=== PATIENT | male | born 1950 | race African-American/Black ===

== ENCOUNTER → 2019-09-19 | Outpatient (CLI) | payer OTHER ==
--- NOTE | 2019-09-19 16:49 | RADIOLOGY REPORT (SQ) ---
EXAM DESCRIPTION: U/S SCROTUM W/O DOPPLER COMPLETED DATE/TIME: 09/19/2019 3:31 pm REASON FOR STUDY: BILATERAL TESTICULAR PAIN COMPARISON: None. TECHNIQUE: Static and realtime mcdonald scale imaging of the scrotum and testes. Selected color Doppler and spectral images recorded to document blood flow. LIMITATIONS: None. FINDINGS: RIGHT: TESTICLE: Normal size, 3.6 x 2 x 2.9 cm. Slightly heterogeneous echotexture. Normal blood flow. No mass. EPIDIDYMIS: 1.1 cm. There is a 5 mm epididymal cyst. HYDROCELE OR VARICOCELE: Small hydrocele. HERNIA OR EXTRA-TESTICULAR MASS: No. OTHER: No other significant finding. LEFT: TESTICLE: Normal size, 3.8 x 1.8 x 2.4 cm. Slightly heterogeneous echotexture. Normal blood flow. No mass. EPIDIDYMIS: Normal, 6 mm. HYDROCELE OR VARICOCELE: There is a small hydrocele. HERNIA OR EXTRA-TESTICULAR MASS: No. OTHER: No other significant finding. IMPRESSION: There is a small epididymal cyst on the right. Small hydroceles bilaterally. No testic ular mass. No torsion. TECHNICAL DOCUMENTATION: JOB ID: [id number] 2010 [employer]- All Rights Reserved Reading location - IP/workstation name: [email or web address]
== END ==
LOC: RAD 14:36
PROVIDERS: ATTEND Nurse Practitioner Family
DX: N50.3 Cyst of epididymis (principal); N50.812 Left testicular pain; N43.3 Hydrocele, unspecified; N50.811 Right testicular pain
CPT/HCPCS: 76870

== ENCOUNTER 2019-12-20 13:21 | Inpatient (IN) | payer OTHER, MEDICARE ==
[2019-12-20 14:27] LABS: ALBUMIN 2.6 g/dL (3.5-5.0); ALKALINE PHOSPHATASE 45 U/L (38-126); ANION GAP 6 (5-19); ASPARTATE AMINO TRANSFERASE 15 U/L (17-59); BILIRUBIN,TOTAL 0.3 mg/dL (0.2-1.3); BLOOD UREA NITROGEN 12 mg/dL (7-20); CARBON DIOXIDE 20 mmol/L (22-30); CHLORIDE 111 mmol/L (98-107); CREATINE KINASE 22 U/L (55-170); GLUCOSE 104 mg/dL (75-110); POTASSIUM 3.9 mmol/L (3.6-5.0); TOTAL PROTEIN 5.1 g/dL (6.3-8.2)
[2019-12-20] MEDS ORDERED: NORMAL SALINE 1000 ML 1,000 ML IV ONE (14:34)
[2019-12-20 14:44] LABS: CREATINE KINASE MB < 0.22 ng/mL (<4.55); TROPONIN I < 0.012 ng/mL
[2019-12-20 14:45] LABS: ABSOLUTE BASOPHILS # (AUTO) 0.1 10^3/uL (0.0-0.2); ABSOLUTE EOSINOPHILS # (AUTO) 0.1 10^3/uL (0.0-0.6); ABSOLUTE LYMPHOCYTES (AUTO) 0.9 10^3/uL (0.5-4.7); ABSOLUTE MONOCYTES (AUTO) 0.5 10^3/uL (0.1-1.4); ABSOLUTE NEUT (AUTO) 4.6 10^3/uL (1.7-8.2); EOSINOPHILS % (AUTO) 1.2 % (0-6); MEAN CORPUSCULAR HEMOGLOBIN 23.5 pg (27.0-33.4); MEAN CORPUSCULAR HGB CONC 30.1 g/dL (32.0-36.0); MEAN CORPUSCULAR VOLUME 78 fl (80-97); MONOCYTES % (AUTO) 8.7 % (3-13); PLATELET COUNT 243 10^3/uL (150-450); RED BLOOD COUNT 1.41 10^6/uL (4.35-5.55); RED CELL DISTRIBUTION WIDTH 20.8 % (11.5-14.0); SEGMENTED NEUTROPHILS % (AUTO) 74.1 % (42-78); TOTAL CELLS COUNTED % (AUTO) 100 %; WHITE BLOOD COUNT 6.2 10^3/uL (4.0-10.5)
[2019-12-20 14:52] LABS: ADD MANUAL MICROSCOPIC YES; APPEARANCE,URINE CLEAR; BILIRUBIN,URINE NEGATIVE (NEGATIVE); COLOR,URINE YELLOW; GLUCOSE, URINE NEGATIVE (NEGATIVE); KETONES,URINE NEGATIVE (NEGATIVE); LEUKOCYTE ESTERASE,URINE NEGATIVE (NEGATIVE); NITRITE,URINE NEGATIVE (NEGATIVE); PROTEIN,URINE NEGATIVE (NEGATIVE); URINE SPECIFIC GRAVITY 1.014; UROBILINOGEN,URINE NEGATIVE mg/dL (<2.0)
[2019-12-20 14:53] LABS: RBC,URINE NONE SEEN /HPF; WBC,URINE NONE SEEN /HPF
[2019-12-20 15:03] LABS: HEMOGLOBIN 3.3 g/dL (13.5-17.0)
--- NOTE | 2019-12-20 15:11 | RADIOLOGY REPORT (SQ) ---
EXAM DESCRIPTION: CT HEAD WITHOUT IMAGES COMPLETED DATE/TIME: 12/20/2019 3:02 pm REASON FOR STUDY: dizziness COMPARISON: None. TECHNIQUE: Axial images acquired through the brain without intravenous contrast. Images reviewed wi th bone, brain and subdural windows. Additional sagittal and coronal reconstructions were generated. Images stored on PACS. All CT scanners at this facility use dose modulation, iterative reconstruction, and/or weight based d osing when appropriate to reduce radiation dose to as low as reasonably achievable (ALARA). [facility]: Dose Right [facility]: CareDose [facility]: Dose Right [facility]: Teradose 4D [facility]: [employer] RADIATION DOSE: CT Rad equipment meets quality standard of care and radiation dose reduction techniq ues were employed. CTDIvol: 53.2 mGy. DLP: 1044 mGy-cm. mGy. LIMITATIONS: None. FINDINGS: VENTRICLES: Normal size and contour. CEREBRUM: No masses. No hemorrhage. No midline shift. No evidence for acute infarction. Normal gra y/white matter differentiation. No areas of low density in the white matter. CEREBELLUM: No masses. No hemorrhage. No alteration of density. No evidence for acute infarction. EXTRAAXIAL SPACES: No fluid collections. No masses. ORBITS AND GLOBE: No intra- or extraconal masses. Normal contour of globe without masses. CALVARIUM: No fracture. PARANASAL SINUSES: No fluid or mucosal thickening. SOFT TISSUES: No mass or hematoma. OTHER: No other significant finding. IMPRESSION: NORMAL BRAIN CT WITHOUT CONTRAST. EVIDENCE OF ACUTE STROKE: NO. COMMENT: Quality ID # [id number]: Final reports with documentation of one or more dose reduction techniques (e.g., Automated exposure control, adjustment of the mA and/or kV according to patient size, use of iterative reconstruction technique) TECHNICAL DOCUMENTATION: JOB ID: [id number] 2010 [employer]- All Rights Reserved Reading location - IP/workstation name: [email or web address]
[2019-12-20 15:17] LABS: ANISOCYTOSIS 2+; BURR CELLS SLIGHT; HYPOCHROMASIA 2+; OVALOCYTES SLIGHT; PLATELET COMMENT ADEQUATE; POIKILOCYTOSIS SLIGHT; POLYCHROMASIA SLIGHT; TEAR DROP CELLS SLIGHT
[2019-12-20 15:27] LABS: INTERNATIONAL RATION (INR) 1.39; PROTHROMBIN TIME 17.2 SEC (11.4-15.4)
[2019-12-20 15:28] LABS: PARTIAL THROMBOPLASTIN TIME 21.5 SEC (23.5-35.8)
[2019-12-20] MEDS ORDERED: NORMAL SALINE 250 ML IV PRN ×2 (16:24)
--- NOTE | 2019-12-20 16:59 | RADIOLOGY REPORT (SQ) ---
EXAM DESCRIPTION: CT ABD/PELVIS WITH IV ONLY IMAGES COMPLETED DATE/TIME: 12/20/2019 4:40 pm REASON FOR STUDY: gi bleed COMPARISON: 07/26/2014 TECHNIQUE: CT scan of the abdomen and pelvis performed using helical scanning technique with dynamic intravenous contrast injection. No oral contrast. Images reviewed with lung, soft tissue, and bone windows. Reconstructed coronal and sagittal MPR images reviewed. Delayed images for evaluation of the urinary system also acquired. All images stored on PACS. All CT scanners at this facility use dose modulation, iterative reconstruction, and/or weight based d osing when appropriate to reduce radiation dose to as low as reasonably achievable (ALARA). [facility]: Dose Right [facility]: CareDose [facility]: Dose Right [facility]: Teradose 4D [facility]: [employer] CONTRAST TYPE AND DOSE: contrast/concentration: Isovue 350.00 mg/ml; Total Contrast Delivered: 94.0 ml; Total Saline Delivered: 70.6 ml RENAL FUNCTION: BUN 12, creatinine 1.04 RADIATION DOSE: CT Rad equipment meets quality standard of care and radiation dose reduction techniq ues were employed. CTDIvol: 5.9 - 8.1 mGy. DLP: 753 mGy-cm.. LIMITATIONS: None. FINDINGS: LOWER CHEST: There are small pleural effusions and bibasilar atelectasis. LIVER: Small stable hepatic cyst. There is dilatation of the common bile duct. Distal stricture and /or possibly calcified mass cannot be excluded. SPLEEN: Normal size. No focal lesions. PANCREAS: Mild inflammatory changes surrounding the pancreatic head this is most likely secondary to inflammation in the adjacent duodenum. There is contrast or calcification in the uncinate process an d distal pancreatic head. This is new from prior exam. The pancreatic duct is dilated this is incre ased since prior study. GALLBLADDER: No identified stones by CT criteria. No inflammatory changes to suggest cholecystitis. ADRENAL GLANDS: No significant masses or asymmetry. RIGHT KIDNEY AND URETER: No solid masses. No significant calcifications. No hydronephrosis or hyd roureter. LEFT KIDNEY AND URETER: No solid masses. No significant calcifications. No hydronephrosis or hydr oureter. AORTA AND VESSELS: No aneurysm. No dissection. Renal arteries, SMA, celiac without stenosis. RETROPERITONEUM: No retroperitoneal adenopathy, hemorrhage or masses. BOWEL AND PERITONEAL CAVITY: Inflammatory changes surrounding the duodenum C-loop. This may represen t do a denied he was. Upper endoscopy may be warranted. Clinical correlation is needed. There is s light thickening of the duodenum wall. APPENDIX: Normal. PELVIS: No mass. No free fluid. Normal bladder. ABDOMINAL WALL: No masses. No hernias. BONES: No significant or acute findings. OTHER: No other significant finding. IMPRESSION: 1. Inflammatory changes involving the duodenum C-loop with bowel wall thickening and trevor rounding inflammation. Inflammation around the pancreatic head is most likely secondary to the infla mmatory changes involving the duodenum. Findings are consistent with duodenitis. 2. Calcification involving uncinate process in the inferior pancreatic head. There is dilatation of the pancreatic duct. Distal common bile duct stricture cannot be excluded. Further evaluation with MRCP or ERCP is recommended. 3. Small pleural effusions and basilar atelectasis new from prior study. TECHNICAL DOCUMENTATION: JOB ID: [id number] Quality ID # [id number]: Final reports with documentation of one or more dose reduction techniques (e.g., Au tomated exposure control, adjustment of the mA and/or kV according to patient size, use of iterative reconstruction technique) 2010 [employer])- All Rights Reserved Reading location - IP/workstation name: [email or web address]
--- NOTE | 2019-12-20 17:01 | ER Document Report ---
ED Dizziness/Weakness - General Chief Complaint: Dizziness Stated Complaint: DIZZINESS Time Seen by Provider: 12/20/19 13:50 Mode of Arrival: Medic Information source: Patient Notes: 69-year-old man presents to the emergency department with complaint of dizziness with falls since worse over the past 2 to 3 days. States he is not sure why he is feeling so weak. States his symptoms began late October and has been progressive since that time. He states that he is out of breath whenever he tri es to walk to the bathroom and has fallen on 3-4 separate occasions. Patient states that he has been noticing dark stools also. He has been taking aspirin, he is a smoker, no prior history of GI bleeding. TRAVEL OUTSIDE OF THE [place] IN LAST 30 DAYS: No - Related Data Allergies/Adverse Reactions: No Known Allergies Allergy (Verified 12/20/19 14:02) Past Medical History - Social History Smoking Status: Current Every Day Smoker Frequency of alcohol use: Heavy Family History: Reviewed & Not Pertinent Patient has homicidal ideation: No - Past Medical History Cardiac Medical History: Reports: Hx Hypertension Review of Systems - Review of Systems Notes: Constitutional: Negative for fever. HENT: Negative for sore throat. Eyes: Negative for visual changes. Cardiovascular: Negative for chest pain. Respiratory: Negative for shortness of breath. Gastrointestinal: Negative for abdominal pain, vomiting or diarrhea. Genitourinary: Negative for dysuria. Musculoskeletal: Negative for back pain. Skin: Negative for rash. Neurological: + Dizziness, + generalized weakness. 10 point ROS negative except as marked above and in HPI. Physical Exam - Vital signs Vitals: Resp Pulse Ox 33 H 93 12/20/19 13:23 12/20/19 13:23 - Notes Notes: PHYSICAL EXAMINATION: Physical Exam: General: Well-nourished well-developed 69-year-old man in no acute distress HEENT: NC/AT, pupils equal round and reactive to light, MM moist,nares clear, oropharynx clear, airway patent conjunctiva pale Neck: supple, no adenopathy, no masses. Good range of motion Lungs: clear, no wheezing, no rales no rhonchi CVS: Regular rate and rhythm no murmur gallop or rub Abdomen: Soft, active, nontender, no masses, no hepatosplenomegaly rectal exam dark reddish blood, heme positive. Ext: No edema, clubbing or cyanosis. Neuro: Alert and responsive, moving all 4 extremities on command, cranial nerves intact, no focal findings Skin: Intact no open lesions, no rash PSYCH: Normal mood, normal affect. Course - Re-evaluation Re-evalutation: 12/20/19 17:05 Patient with dizziness and weakness found to have a GI bleed, significant anemia hemoglobin 3/hematocrit 11. Patient is given Protonix 80 mg with a Protonix drip and, CT scan abdomen and pelvis reveals inflammatory changes are surrounding the pancreatic head which is likely due to inflammatory changes in the duodenum. These findings may also suggest a duodenal bleed. I have discussed the patient with the hospitalist,Dr Diego, he will admit the patient to the IMCU for further management. I will contact the mobile patrol officer logistics loss prevention manager regarding the patient's being admitted. - Vital Signs Vital signs: Temp Pulse Resp BP Pulse Ox 97.9 F 98 20 114/58 L 97 12/20/19 17:55 12/20/19 17:55 12/20/19 18:01 12/20/19 18:00 12/20/19 18:01 - Laboratory Result Diagrams: 12/20/19 14:34 12/20/19 13:54 Laboratory results interpreted by me: 12/20/19 12/20/19 12/20/19 13:54 13:54 14:34 RBC 1.41 L Hgb 3.3 L* Hct 11.0 L* MCV 78 L MCH 23.5 L MCHC 30.1 L RDW 20.8 H PT 17.2 H APTT 21.5 L Sodium 136.9 L Chloride 111 H Carbon Dioxide 20 L Calcium 8.0 L AST 15 L Creatine Kinase 22 L Total Protein 5.1 L Albumin 2.6 L Crossmatch 12/20/19 15:11 RBC Hgb Hct MCV MCH MCHC RDW PT APTT Sodium Chloride Carbon Dioxide Calcium AST Creatine Kinase Total Protein Albumin Crossmatch See Detail - Diagnostic Test Radiology reviewed: Image reviewed, Reports reviewed - CT head: No acute intracranial process CT abdomen and pelvis with IV contrast: Inflammatory changes involving the duodenal CT scan abdomen and pelvis with IV contrast. C-loop with bowel wall thickening and surrounding inflammation. Inflammation around the pancreatic head is most likely secondary to the inflammatory changes involving the duodenum. Discharge - Discharge Clinical Impression: Severe anemia, Hemorrhagic shock, Dizziness GI bleed Qualifiers: GI bleed type/associated pathology: unspecified gastrointestinal hemorrhage type Qualified Code(s): K92.2 - Gastrointestinal hemorrhage, unspecified Condition: Good Disposition: ADMITTED INPATIENT Admitting Provider: Johnathon (Hospitalist) Unit Admitted: [facility]
[2019-12-20] MEDS ORDERED: DEXTROSE 50%-WATER 25 GM/50 ML DISP.SYRIN IV PRN ×2 (17:36)
[2019-12-20] MEDS ORDERED: GLUCAGON,HUMAN RECOMB 1 MG INJ SUBCUT PRN (17:36)
[2019-12-20] MEDS ORDERED: DEXTROSE 40% GEL 15 GM TUBE PO PRN ×2 (17:36)
--- NOTE | 2019-12-20 17:53 | PDOC CONSULTATION ---
Consultation Consult Date: 12/20/19 Provider Consulted: MELISSA CABELLO Consult reason:: GI bleeding History of Present Illness Admission Date/PCP: 12/20/19 17:16 [facility] History of Present Illness: FUENTES KOWALSKI is a 69 year old male patient presented to ED with weakness and profound anemia Hgb noted to be around [address] scan showing possible source in the duodenum will need to be admitted and transfused slightly tachycardic but normotensive hemodynamically stable will need to have transfusion and stabilized will get rapid testing for Covid 19 so that we can expedite EGD to be done will need to be done in the OR start protonix drip and possible even a bolus dose of Sandostatin Past Medical History Cardiac Medical History: Reports: Hypertension Social History Smoking Status: Current Every Day Smoker Family History Parental Family History Reviewed: Yes Children Family History Reviewed: Unknown Sibling(s) Family History Reviewed.: Unknown Medication/Allergy Allergies/Adverse Reactions: No Known Allergies Allergy (Verified 12/20/19 14:02) Review of Systems Constitutional: PRESENT: weakness. ABSENT: fever(s), headache(s), night sweats Eyes: ABSENT: visual disturbances Ears: ABSENT: hearing changes Nose, Mouth, and Throat: ABSENT: mouth pain, sore throat Cardiovascular: ABSENT: edema, orthropnea, palpitations Respiratory: ABSENT: dyspnea, hemoptysis Gastrointestinal: ABSENT: diarrhea, hematemesis, hematochezia, melena Genitourinary: ABSENT: dysuria, hematuria Musculoskeletal: ABSENT: deformity, joint swelling Integumentary: ABSENT: lesions, pruritus Neurological: ABSENT: syncope, tingling, tremor(s) Endocrine: ABSENT: polydipsia, polyphagia, polyuria Hematologic/Lymphatic: ABSENT: easy bruising Physical Exam Vital Signs: Temp Pulse Resp BP Pulse Ox 97.9 F 97 17 112/53 L 97 12/20/19 17:36 12/20/19 17:36 12/20/19 17:36 12/20/19 17:36 12/20/19 17:36 Intake & Output 12/19/19 12/20/19 12/21/19 06:59 06:59 06:59 Intake Total 0 Balance 0 Weight 81.647 kg General appearance: PRESENT: mild distress, well-developed. ABSENT: well- nourished Head exam: PRESENT: atraumatic, normocephalic Eye exam: PRESENT: EOMI, PERRLA. ABSENT: nystagmus, periorbital swelling, scleral icterus Mouth exam: PRESENT: moist, neck supple Neck exam: ABSENT: meningismus, tenderness, thyromegaly Respiratory exam: PRESENT: symmetrical, tachypnea. ABSENT: unlabored Cardiovascular exam: PRESENT: RRR, +S1. ABSENT: +S2 GI/Abdominal exam: PRESENT: normal bowel sounds, organolmegaly, rigid, soft. ABSENT: Irizarry's sign, rebound Neurological exam: PRESENT: alert, awake, CN II-XII grossly intact Skin exam: PRESENT: normal color. ABSENT: mottled, pallor, urticaria, vesicles Results Laboratory Results: 12/20/19 14:34 12/20/19 13:54 12/20/19 12/20/19 12/20/19 13:54 13:54 14:04 WBC Cancelled RBC Cancelled Hgb Cancelled Hct Cancelled MCV Cancelled MCH Cancelled MCHC Cancelled RDW Cancelled Plt Count Cancelled Seg Neutrophils % Cancelled Sodium 136.9 L Potassium 3.9 Chloride 111 H Carbon Dioxide 20 L Anion Gap 6 BUN 12 Creatinine 1.04 Est GFR ( Amer) > 60 Glucose 104 Calcium 8.0 L Total Bilirubin 0.3 AST 15 L Alkaline Phosphatase 45 Total Protein 5.1 L Albumin 2.6 L Urine Color YELLOW Urine Appearance CLEAR Urine pH 6.0 Ur Specific [place] 1.014 Urine Protein NEGATIVE Urine Glucose (UA) NEGATIVE Urine Ketones NEGATIVE Urine Blood NEGATIVE Urine Nitrite NEGATIVE Ur Leukocyte Esterase NEGATIVE Blood Type Antibody Screen 12/20/19 12/20/19 14:34 15:11 WBC 6.2 RBC 1.41 L Hgb 3.3 L* Hct 11.0 L* MCV 78 L MCH 23.5 L MCHC 30.1 L RDW 20.8 H Plt Count 243 Seg Neutrophils % 74.1 Sodium Potassium Chloride Carbon Dioxide Anion Gap BUN Creatinine Est GFR ( Amer) Glucose Calcium Total Bilirubin AST Alkaline Phosphatase Total Protein Albumin Urine Color Urine Appearance Urine pH Ur Specific [place] Urine Protein Urine Glucose (UA) Urine Ketones Urine Blood Urine Nitrite Ur Leukocyte Esterase Blood Type O POSITIVE Antibody Screen NEGATIVE 12/20/19 12/20/19 13:54 13:54 Creatine Kinase 22 L CK-MB (CK-2) < 0.22 Troponin I < 0.012 Impressions: Head CT 12/20/19 14:34 IMPRESSION: NORMAL BRAIN CT WITHOUT CONTRAST. EVIDENCE OF ACUTE STROKE: NO. Abdomen/Pelvis CT 12/20/19 15:10 IMPRESSION: 1. Inflammatory changes involving the duodenum C-loop with bowel wall thickening and surrounding inflammation. Inflammation around the pancreatic head is most likely secondary to the inflammatory changes involving the duodenum. Findings are consistent with duodenitis. 2. Calcification involving uncinate process in the inferior pancreatic head. There is dilatation of the pancreatic duct. Distal common bile duct stricture cannot be excluded. Further evaluation with MRCP or ERCP is recommended. 3. Small pleural effusions and basilar atelectasis new from prior study. Assessment & Plan - Diagnosis (1) GI bleed Qualifiers: GI bleed type/associated pathology: unspecified gastrointestinal hemorrhage type Qualified Code(s): K92.2 - Gastrointestinal hemorrhage, unspecified Plan: appears to be chronic since no hemodynamic instability, but will need urgent EGD will need admission and transfusion, check PT as well to make sure no concurrent coagulopathy start on Protonic drip start on Sandostatin as well once Hgb > 7, will have EGD done Risks, benefits and alternatives are discussed with the patient in detail further recommendations to follow I spoke to ED physician to get rapid Covid 19 testing so we can expedite his procedure - Time Time Spent: 50 to 70 Minutes
--- NOTE | 2019-12-20 18:02 | PDOC H&P ---
History of Present Illness Admission Date/PCP: 12/20/19 17:16 [facility] Patient complains of: Dizziness History of Present Illness: FUENTES KOWALSKI is a 69 year old male who has history of hypertension, arthritis and prostate cancer status post recent radiation therapy. Patient presents to the emergency room due to acute onset of generalized weakness and dizziness started about 2 weeks ago and has been progressive in nature. Patient cannot move around without feeling dizzy and he actually has been crawling on the floor because he could not stand up. When he came to the emergency room his hemoglobin was 3.3. He also admits to mild to moderate epigastric abdominal pain as well as intermittent nausea and vomiting. patient also complains of melena. Patient takes aspirin, diclofenac. He is everyday smoker and drinker. Past Medical History Cardiac Medical History: Reports: Hypertension Social History Smoking Status: Current Every Day Smoker Family History Parental Family History Reviewed: Yes Children Family History Reviewed: Yes Sibling(s) Family History Reviewed.: Yes Medication/Allergy Allergies/Adverse Reactions: No Known Allergies Allergy (Verified 12/20/19 14:02) Review of Systems All systems: reviewed and no additional remarkable complaints except as stated Physical Exam Vital Signs: Temp Pulse Resp BP Pulse Ox 97.9 F 97 17 112/53 L 97 12/20/19 17:36 12/20/19 17:36 12/20/19 17:36 12/20/19 17:36 12/20/19 17:36 Intake & Output 12/19/19 12/20/19 12/21/19 06:59 06:59 06:59 Intake Total 0 Balance 0 Weight 180 lb General appearance: PRESENT: no acute distress, cooperative Head exam: PRESENT: atraumatic, normocephalic Eye exam: PRESENT: conjunctiva pale, EOMI, PERRLA Ear exam: ABSENT: bleeding, drainage Mouth exam: PRESENT: moist, neck supple Teeth exam: PRESENT: poor dentation Neck exam: ABSENT: meningismus, tenderness, tracheostomy Respiratory exam: PRESENT: clear to auscultation luisa, symmetrical Cardiovascular exam: PRESENT: +S1, +S2, tachycardia GI/Abdominal exam: PRESENT: normal bowel sounds, soft, tenderness Rectal exam: PRESENT: deferred Neurological exam: PRESENT: alert, awake, oriented to person, oriented to place, oriented to time, oriented to situation Psychiatric exam: PRESENT: anxious. ABSENT: suicidal ideation Skin exam: PRESENT: pallor Results Laboratory Results: 12/20/19 14:34 12/20/19 13:54 12/20/19 12/20/19 12/20/19 13:54 13:54 14:04 WBC Cancelled RBC Cancelled Hgb Cancelled Hct Cancelled MCV Cancelled MCH Cancelled MCHC Cancelled RDW Cancelled Plt Count Cancelled Seg Neutrophils % Cancelled Sodium 136.9 L Potassium 3.9 Chloride 111 H Carbon Dioxide 20 L Anion Gap 6 BUN 12 Creatinine 1.04 Est GFR ( Amer) > 60 Glucose 104 Calcium 8.0 L Total Bilirubin 0.3 AST 15 L Alkaline Phosphatase 45 Total Protein 5.1 L Albumin 2.6 L Urine Color YELLOW Urine Appearance CLEAR Urine pH 6.0 Ur Specific [place] 1.014 Urine Protein NEGATIVE Urine Glucose (UA) NEGATIVE Urine Ketones NEGATIVE Urine Blood NEGATIVE Urine Nitrite NEGATIVE Ur Leukocyte Esterase NEGATIVE Blood Type Antibody Screen 12/20/19 12/20/19 14:34 15:11 WBC 6.2 RBC 1.41 L Hgb 3.3 L* Hct 11.0 L* MCV 78 L MCH 23.5 L MCHC 30.1 L RDW 20.8 H Plt Count 243 Seg Neutrophils % 74.1 Sodium Potassium Chloride Carbon Dioxide Anion Gap BUN Creatinine Est GFR ( Amer) Glucose Calcium Total Bilirubin AST Alkaline Phosphatase Total Protein Albumin Urine Color Urine Appearance Urine pH Ur Specific [place] Urine Protein Urine Glucose (UA) Urine Ketones Urine Blood Urine Nitrite Ur Leukocyte Esterase Blood Type O POSITIVE Antibody Screen NEGATIVE 12/20/19 12/20/19 13:54 13:54 Creatine Kinase 22 L CK-MB (CK-2) < 0.22 Troponin I < 0.012 Impressions: Head CT 12/20/19 14:34 IMPRESSION: NORMAL BRAIN CT WITHOUT CONTRAST. EVIDENCE OF ACUTE STROKE: NO. Abdomen/Pelvis CT 12/20/19 15:10 IMPRESSION: 1. Inflammatory changes involving the duodenum C-loop with bowel wall thickening and surrounding inflammation. Inflammation around the pancreatic head is most likely secondary to the inflammatory changes involving the duodenum. Findings are consistent with duodenitis. 2. Calcification involving uncinate process in the inferior pancreatic head. There is dilatation of the pancreatic duct. Distal common bile duct stricture cannot be excluded. Further evaluation with MRCP or ERCP is recommended. 3. Small pleural effusions and basilar atelectasis new from prior study. Assessment and Plan - Diagnosis (1) Dizziness Is this a current diagnosis for this admission?: Yes Plan: Due to anemia and hypotension. Currently improved. (2) GI bleed Qualifiers: GI bleed type/associated pathology: unspecified gastrointestinal hemorrhage type Qualified Code(s): K92.2 - Gastrointestinal hemorrhage, unspecified Is this a current diagnosis for this admission?: Yes Plan: CT scan positive for duodenitis Start IV Protonix drip Keep him n.p.o. for possible EGD GI consulted (3) Hemorrhagic shock Is this a current diagnosis for this admission?: Yes Plan: Patient started transfusion in the ER. Blood pressures improved. (4) Severe anemia Is this a current diagnosis for this admission?: Yes Plan: Transfusion as above. Due to GI bleeding.
[2019-12-20] MEDS ORDERED: PANTOPRAZOLE SODIUM 80 MG in NORMAL SALINE 100 ML IV ONE (18:30)
[2019-12-20] MEDS: NORMAL SALINE 100 ML with PANTOPRAZOLE SODIUM 80 MG IV PRN ×2 (21:55)
[2019-12-21] MEDS: THIAMINE HCL 100 MG, FOLIC ACID 1 MG in NORMAL SALINE 250 ML IV SCH ×2 (00:08→21:12)
[2019-12-21] MEDS: RINGERS SOLUTION,LACTATED 1,000 ML IV PRN ×2 (00:08→17:42)
[2019-12-21 02:37] LABS: ABSOLUTE EOSINOPHILS # (AUTO) 0.1 10^3/uL (0.0-0.6); ABSOLUTE LYMPHOCYTES (AUTO) 0.9 10^3/uL (0.5-4.7); ABSOLUTE MONOCYTES (AUTO) 0.5 10^3/uL (0.1-1.4); ABSOLUTE NEUT (AUTO) 3.9 10^3/uL (1.7-8.2); BASOPHILS % (AUTO) 0.5 % (0-2); EOSINOPHILS % (AUTO) 1.2 % (0-6); HEMATOCRIT 17.5 % (37.9-51.0); LYMPHOCYTES % (AUTO) 16.9 % (13-45); MEAN CORPUSCULAR HEMOGLOBIN 27.3 pg (27.0-33.4); MEAN CORPUSCULAR HGB CONC 32.6 g/dL (32.0-36.0); MONOCYTES % (AUTO) 8.8 % (3-13); PLATELET COUNT 207 10^3/uL (150-450); RED BLOOD COUNT 2.09 10^6/uL (4.35-5.55); RED CELL DISTRIBUTION WIDTH 21.5 % (11.5-14.0); SEGMENTED NEUTROPHILS % (AUTO) 72.6 % (42-78); TOTAL CELLS COUNTED % (AUTO) 100 %; WHITE BLOOD COUNT 5.3 10^3/uL (4.0-10.5)
[2019-12-21 02:39] LABS: HEMOGLOBIN 5.7 g/dL (13.5-17.0)
[2019-12-21 02:40] LABS: MEAN CORPUSCULAR VOLUME 84 fl (80-97)
[2019-12-21 06:52] LABS: ANION GAP 6 (5-19); BLOOD UREA NITROGEN 11 mg/dL (7-20); CALCIUM 7.7 mg/dL (8.4-10.2); CARBON DIOXIDE 19 mmol/L (22-30); CHLORIDE 114 mmol/L (98-107); GLUCOSE 101 mg/dL (75-110); POTASSIUM 4.5 mmol/L (3.6-5.0)
[2019-12-21 06:58] LABS: HEMATOCRIT 21.1 % (37.9-51.0); MEAN CORPUSCULAR HEMOGLOBIN 27.6 pg (27.0-33.4); MEAN CORPUSCULAR VOLUME 84 fl (80-97); PLATELET COUNT 219 10^3/uL (150-450); RED BLOOD COUNT 2.51 10^6/uL (4.35-5.55); WHITE BLOOD COUNT 5.6 10^3/uL (4.0-10.5)
[2019-12-21 07:02] LABS: HEMOGLOBIN 6.9 g/dL (13.5-17.0)
[2019-12-21] MEDS: NORMAL SALINE 100 ML with PANTOPRAZOLE SODIUM 80 MG IV PRN ×4 (07:30→20:50)
--- NOTE | 2019-12-21 08:36 | EKG REPORT ---
SEVERITY:- OTHERWISE NORMAL ECG - SINUS TACHYCARDIA LOW VOLTAGE IN FRONTAL LEADS : Confirmed by: Shelley Santiago 21-Dec-2019 08:36:01
--- NOTE | 2019-12-21 10:47 | PDOC PROGRESS REPORT ---
Subjective Progress Note for:: 12/21/19 Subjective:: Patient complains of: Dizziness History of Present Illness: FUENTES KOWALSKI is a 69 year old male who has history of hypertension, arthritis and prostate cancer status post recent radiation therapy. Patient presents to the emergency room due to acute onset of generalized weakness and dizziness started about 2 weeks ago and has been progressive in nature. Patient cannot move around without feeling dizzy and he actually has been crawling on the floor because he could not stand up. When he came to the emergency room his hemoglobin was 3.3. He also admits to mild to moderate epigastric abdominal pain as well as intermittent nausea and vomiting. patient also complains of melena. Patient takes aspirin, diclofenac. He is everyday smoker and drinker. Interval history: 12/21/2019: Patient seen and examined. He is much better today. He denies dizziness, chest pain or shortness of breath. His hemoglobin improved to 6.9 after 4 units of blood. Review of Systems All systems: reviewed and no additional remarkable complaints except as stated Physical Exam General appearance: PRESENT: no acute distress, cooperative Head exam: PRESENT: atraumatic, normocephalic Eye exam: PRESENT: conjunctiva pale, EOMI, PERRLA Ear exam: ABSENT: bleeding, drainage Mouth exam: PRESENT: moist, neck supple Teeth exam: PRESENT: poor dentation Neck exam: ABSENT: meningismus, tenderness, tracheostomy Respiratory exam: PRESENT: clear to auscultation luisa, symmetrical Cardiovascular exam: PRESENT: +S1, +S2, tachycardia GI/Abdominal exam: PRESENT: normal bowel sounds, soft, tenderness Rectal exam: PRESENT: deferred Neurological exam: PRESENT: alert, awake, oriented to person, oriented to place, oriented to time, oriented to situation Psychiatric exam: PRESENT: anxious. ABSENT: suicidal ideation Skin exam: PRESENT: pallor Reason For Visit: SEVERE ANEMIA,HEMORRHAGIC SHOCK,DIZZINESS Physical Exam Vital Signs: Temp Pulse Resp BP Pulse Ox 98.9 F 80 20 129/65 H 96 12/21/19 10:05 12/21/19 10:05 12/21/19 10:05 12/21/19 10:05 12/21/19 10:05 Intake & Output 12/20/19 12/21/19 12/22/19 06:59 06:59 06:59 Intake Total 2742.2 426 Output Total 650 Balance 2092.2 426 Weight 175 lb 14.862 oz Results Laboratory Results: 12/21/19 06:04 12/21/19 06:04 12/20/19 12/20/19 12/20/19 13:54 13:54 14:04 WBC Cancelled RBC Cancelled Hgb Cancelled Hct Cancelled MCV Cancelled MCH Cancelled MCHC Cancelled RDW Cancelled Plt Count Cancelled Seg Neutrophils % Cancelled Sodium 136.9 L Potassium 3.9 Chloride 111 H Carbon Dioxide 20 L Anion Gap 6 BUN 12 Creatinine 1.04 Est GFR ( Amer) > 60 Glucose 104 Calcium 8.0 L Total Bilirubin 0.3 AST 15 L Alkaline Phosphatase 45 Total Protein 5.1 L Albumin 2.6 L Urine Color YELLOW Urine Appearance CLEAR Urine pH 6.0 Ur Specific Caret 1.014 Urine Protein NEGATIVE Urine Glucose (UA) NEGATIVE Urine Ketones NEGATIVE Urine Blood NEGATIVE Urine Nitrite NEGATIVE Ur Leukocyte Esterase NEGATIVE Blood Type Antibody Screen 12/20/19 12/20/19 12/21/19 14:34 15:11 02:09 WBC 6.2 5.3 RBC 1.41 L 2.09 L Hgb 3.3 L* 5.7 L D Hct 11.0 L* 17.5 L MCV 78 L 84 D MCH 23.5 L 27.3 MCHC 30.1 L 32.6 RDW 20.8 H 21.5 H Plt Count 243 207 Seg Neutrophils % 74.1 72.6 Sodium Potassium Chloride Carbon Dioxide Anion Gap BUN Creatinine Est GFR ( Amer) Glucose Calcium Total Bilirubin AST Alkaline Phosphatase Total Protein Albumin Urine Color Urine Appearance Urine pH Ur Specific Caret Urine Protein Urine Glucose (UA) Urine Ketones Urine Blood Urine Nitrite Ur Leukocyte Esterase Blood Type O POSITIVE Antibody Screen NEGATIVE 12/21/19 12/21/19 06:04 06:04 WBC 5.6 RBC 2.51 L Hgb 6.9 L Hct 21.1 L MCV 84 MCH 27.6 MCHC 33.0 RDW 20.0 H Plt Count 219 Seg Neutrophils % Sodium 139.1 Potassium 4.5 Chloride 114 H Carbon Dioxide 19 L Anion Gap 6 BUN 11 Creatinine 0.93 Est GFR ( Amer) > 60 Glucose 101 Calcium 7.7 L Total Bilirubin AST Alkaline Phosphatase Total Protein Albumin Urine Color Urine Appearance Urine pH Ur Specific Caret Urine Protein Urine Glucose (UA) Urine Ketones Urine Blood Urine Nitrite Ur Leukocyte Esterase Blood Type Antibody Screen 12/20/19 12/20/19 13:54 13:54 Creatine Kinase 22 L CK-MB (CK-2) < 0.22 Troponin I < 0.012 Impressions: Head CT 12/20/19 14:34 IMPRESSION: NORMAL BRAIN CT WITHOUT CONTRAST. EVIDENCE OF ACUTE STROKE: NO. Abdomen/Pelvis CT 12/20/19 15:10 IMPRESSION: 1. Inflammatory changes involving the duodenum C-loop with bowel wall thickening and surrounding inflammation. Inflammation around the pancreatic head is most likely secondary to the inflammatory changes involving the duodenum. Findings are consistent with duodenitis. 2. Calcification involving uncinate process in the inferior pancreatic head. There is dilatation of the pancreatic duct. Distal common bile duct stricture cannot be excluded. Further evaluation with MRCP or ERCP is recommended. 3. Small pleural effusions and basilar atelectasis new from prior study. Assessment and Plan - Diagnosis (1) Dizziness Is this a current diagnosis for this admission?: Yes Plan: Due to anemia and hypotension. Currently improved. (2) GI bleed Qualifiers: GI bleed type/associated pathology: unspecified gastrointestinal hemorrhage type Qualified Code(s): K92.2 - Gastrointestinal hemorrhage, unspecified Is this a current diagnosis for this admission?: Yes Plan: CT scan positive for duodenitis Continue IV Protonix drip Keep him n.p.o. for possible EGD GI consulted (3) Hemorrhagic shock Is this a current diagnosis for this admission?: Yes Plan: Patient started transfusion in the ER. Currently resolved. (4) Severe anemia Is this a current diagnosis for this admission?: Yes Plan: Received 4 units of blood so far and his hemoglobin improved to 6.9. Due to GI bleeding.
[2019-12-21] MEDS ORDERED: PROPOFOL INJ 200 MG/20 ML VIAL IV ONE (11:04)
[2019-12-21 12:54] LABS: HEMATOCRIT 25.1 % (37.9-51.0); HEMOGLOBIN 8.3 g/dL (13.5-17.0); MEAN CORPUSCULAR HEMOGLOBIN 27.5 pg (27.0-33.4); MEAN CORPUSCULAR HGB CONC 33.1 g/dL (32.0-36.0); MEAN CORPUSCULAR VOLUME 83 fl (80-97); PLATELET COUNT 225 10^3/uL (150-450); RED BLOOD COUNT 3.02 10^6/uL (4.35-5.55); RED CELL DISTRIBUTION WIDTH 19.4 % (11.5-14.0)
[2019-12-21 13:24] LABS: ANION GAP 6 (5-19); BLOOD UREA NITROGEN 10 mg/dL (7-20); CALCIUM 7.7 mg/dL (8.4-10.2); CARBON DIOXIDE 21 mmol/L (22-30); CHLORIDE 112 mmol/L (98-107); GLUCOSE 97 mg/dL (75-110); POTASSIUM 3.8 mmol/L (3.6-5.0)
--- NOTE | 2019-12-21 13:44 | Operative Report ---
Operative Report DATE OF SURGERY: 12/21/19 Operative Report: The risks benefits and alternatives of the procedure explained to the patient in detail and informed consent is obtained.A GIF Olympus video scope was inserted into the patient's mouth and hypopharynx, the esophagus is identified intubated and insufflated ,the scope was then advanced through the esophagus stomach and duodenum, retroflexion maneuver is done ,the esophagus stomach and first and second portions of the duodenum examined PREOPERATIVE DIAGNOSIS: Abnormal CT scan with possible lesion in the duodenum. GI bleeding. Anemia POSTOPERATIVE DIAGNOSIS: Duodenal ulcer but clean base not actively bleeding. Gastritis status post biopsy OPERATION: EGD with biopsy SURGEON: MELISSA CABELLO ANESTHESIA: LMAC TISSUE REMOVED OR ALTERED: As noted above. COMPLICATIONS: None. ESTIMATED BLOOD LOSS: None. INTRAOPERATIVE FINDINGS: As noted above. PROCEDURE: Patient tolerated the procedure well. No immediate postprocedure complications are noted. Patient is sent back to his room in good condition. Wait on biopsies. Remain on PPI Repeat scope as outpatient to document healing If further bleeding continues may need colonoscopy
[2019-12-21 15:19] LABS: PATH REVIEW PATHOLOGIST REVIEWED
[2019-12-22] MEDS: RINGERS SOLUTION,LACTATED 1,000 ML IV PRN ×2 (04:42→16:30)
[2019-12-22] MEDS: NORMAL SALINE 100 ML with PANTOPRAZOLE SODIUM 80 MG IV PRN ×4 (05:58→16:30)
[2019-12-22 06:49] LABS: HEMATOCRIT 22.8 % (37.9-51.0); MEAN CORPUSCULAR HEMOGLOBIN 27.4 pg (27.0-33.4); MEAN CORPUSCULAR HGB CONC 33.4 g/dL (32.0-36.0); MEAN CORPUSCULAR VOLUME 82 fl (80-97); PLATELET COUNT 211 10^3/uL (150-450); RED BLOOD COUNT 2.77 10^6/uL (4.35-5.55); RED CELL DISTRIBUTION WIDTH 19.6 % (11.5-14.0); WHITE BLOOD COUNT 6.2 10^3/uL (4.0-10.5)
[2019-12-22 06:51] LABS: HEMOGLOBIN 7.6 g/dL (13.5-17.0)
--- NOTE | 2019-12-22 10:56 | PDOC PROGRESS REPORT ---
Subjective Progress Note for:: 12/22/19 Subjective:: Patient complains of: Dizziness History of Present Illness: FUENTES KOWALSKI is a 69 year old male who has history of hypertension, arthritis and prostate cancer status post recent radiation therapy. Patient presents to the emergency room due to acute onset of generalized weakness and dizziness started about 2 weeks ago and has been progressive in nature. Patient cannot move around without feeling dizzy and he actually has been crawling on the floor because he could not stand up. When he came to the emergency room his hemoglobin was 3.3. He also admits to mild to moderate epigastric abdominal pain as well as intermittent nausea and vomiting. patient also complains of melena. Patient takes aspirin, diclofenac. He is everyday smoker and drinker. Interval history: 12/21/2019: Patient seen and examined. He is much better today. He denies dizziness, chest pain or shortness of breath. His hemoglobin improved to 6.9 after 4 units of blood. 12/22/2019: Patient was seen and examined. Status post EGD yesterday that was positive for gastritis and duodenal ulcer. He complains of abdominal pain but he is tolerating diet. Hemoglobin has been stable at 7.6. Review of Systems All systems: reviewed and no additional remarkable complaints except as stated Physical Exam General appearance: PRESENT: no acute distress, cooperative Head exam: PRESENT: atraumatic, normocephalic Eye exam: PRESENT: conjunctiva pale, EOMI, PERRLA Ear exam: ABSENT: bleeding, drainage Mouth exam: PRESENT: moist, neck supple Teeth exam: PRESENT: poor dentation Neck exam: ABSENT: meningismus, tenderness, tracheostomy Respiratory exam: PRESENT: clear to auscultation luisa, symmetrical Cardiovascular exam: PRESENT: +S1, +S2, tachycardia GI/Abdominal exam: PRESENT: normal bowel sounds, soft, tenderness Rectal exam: PRESENT: deferred Neurological exam: PRESENT: alert, awake, oriented to person, oriented to place, oriented to time, oriented to situation Psychiatric exam: PRESENT: anxious. ABSENT: suicidal ideation Skin exam: PRESENT: pallor Reason For Visit: SEVERE ANEMIA,HEMORRHAGIC SHOCK,DIZZINESS Physical Exam Vital Signs: Temp Pulse Resp BP Pulse Ox 97.5 F 78 18 127/65 H 91 L 12/22/19 08:05 12/22/19 08:05 12/22/19 08:05 12/22/19 08:05 12/22/19 08:05 Intake & Output 12/21/19 12/22/19 12/23/19 06:59 06:59 06:59 Intake Total 2742.2 3905.2 Output Total 650 653 Balance 2092.2 3252.2 Weight 175 lb 14.862 oz 183 lb 10.321 oz 183 lb 10.321 oz Results Laboratory Results: 12/22/19 06:04 12/21/19 12:46 12/21/19 12/21/19 12/22/19 12:46 12:46 06:04 WBC 6.0 6.2 RBC 3.02 L 2.77 L Hgb 8.3 L 7.6 L Hct 25.1 L 22.8 L MCV 83 82 MCH 27.5 27.4 MCHC 33.1 33.4 RDW 19.4 H 19.6 H Plt Count 225 211 Sodium 138.5 Potassium 3.8 Chloride 112 H Carbon Dioxide 21 L Anion Gap 6 BUN 10 Creatinine 0.86 Est GFR ( Amer) > 60 Glucose 97 Calcium 7.7 L 12/20/19 12/20/19 13:54 13:54 Creatine Kinase 22 L CK-MB (CK-2) < 0.22 Troponin I < 0.012 Impressions: Head CT 12/20/19 14:34 IMPRESSION: NORMAL BRAIN CT WITHOUT CONTRAST. EVIDENCE OF ACUTE STROKE: NO. Abdomen/Pelvis CT 12/20/19 15:10 IMPRESSION: 1. Inflammatory changes involving the duodenum C-loop with bowel wall thickening and surrounding inflammation. Inflammation around the pancreatic head is most likely secondary to the inflammatory changes involving the duodenum. Findings are consistent with duodenitis. 2. Calcification involving uncinate process in the inferior pancreatic head. There is dilatation of the pancreatic duct. Distal common bile duct stricture cannot be excluded. Further evaluation with MRCP or ERCP is recommended. 3. Small pleural effusions and basilar atelectasis new from prior study. Assessment and Plan - Diagnosis (1) Dizziness Is this a current diagnosis for this admission?: Yes Plan: Due to anemia and hypotension. Currently improved. (2) GI bleed Qualifiers: GI bleed type/associated pathology: unspecified gastrointestinal hemorrhage type Qualified Code(s): K92.2 - Gastrointestinal hemorrhage, unspecified Is this a current diagnosis for this admission?: Yes Plan: CT scan positive for duodenitis Continue IV Protonix drip EGD yesterday positive for gastritis and duodenal ulcer (3) Hemorrhagic shock Is this a current diagnosis for this admission?: Yes Plan: Patient started transfusion in the ER. Currently resolved. (4) Severe anemia Is this a current diagnosis for this admission?: Yes Plan: Received 4 units of blood so far and his hemoglobin improved to 7.6. Due to GI bleeding.
[2019-12-22 18:26] LABS: HEMATOCRIT 22.3 % (37.9-51.0); MEAN CORPUSCULAR HGB CONC 32.8 g/dL (32.0-36.0); MEAN CORPUSCULAR VOLUME 82 fl (80-97); RED CELL DISTRIBUTION WIDTH 20.2 % (11.5-14.0); WHITE BLOOD COUNT 7.2 10^3/uL (4.0-10.5)
[2019-12-22 18:50] LABS: PLATELET COUNT 131 10^3/uL (150-450)
[2019-12-22 18:51] LABS: HEMOGLOBIN 7.3 g/dL (13.5-17.0)
[2019-12-22] MEDS: THIAMINE HCL 100 MG, FOLIC ACID 1 MG in NORMAL SALINE 250 ML IV SCH (21:35)
[2019-12-22 23:28] LABS: HEMATOCRIT 21.1 % (37.9-51.0); MEAN CORPUSCULAR HEMOGLOBIN 27.5 pg (27.0-33.4); MEAN CORPUSCULAR HGB CONC 33.4 g/dL (32.0-36.0); MEAN CORPUSCULAR VOLUME 82 fl (80-97); PLATELET COUNT 231 10^3/uL (150-450); RED BLOOD COUNT 2.56 10^6/uL (4.35-5.55); RED CELL DISTRIBUTION WIDTH 20.1 % (11.5-14.0); WHITE BLOOD COUNT 7.5 10^3/uL (4.0-10.5)
[2019-12-22 23:51] LABS: ABSOLUTE LYMPHOCYTES# (MANUAL) 0.7 10^3/uL (0.5-4.7); ABSOLUTE MONOCYTES # (MANUAL) 0.8 10^3/uL (0.1-1.4); BAND NEUTROPHILS % (MANUAL) 1 % (3-5); BASOPHILS % (MANUAL) 0 % (0-2); EOSINOPHILS % (MANUAL) 0 % (0-6); LYMPHOCYTES % (MANUAL) 9 % (13-45); MONOCYTES % (MANUAL) 10 % (3-13); NUCLEATED RED BLOOD CELLS 5 /100 WBC (0); SEGMENTED NEUTROPHILS % (MAN) 80 % (42-78); TOTAL CELLS COUNTED 100
[2019-12-22 23:52] LABS: ANISOCYTOSIS 2+; PLATELET COMMENT ADEQUATE; POLYCHROMASIA SLIGHT
[2019-12-22 23:53] LABS: HEMOGLOBIN 7.1 g/dL (13.5-17.0)
[2019-12-23] MEDS ORDERED: PANTOPRAZOLE SODIUM 40 MG VIAL IV ONE (02:35)
[2019-12-23] MEDS: RINGERS SOLUTION,LACTATED 1,000 ML IV PRN ×2 (02:50→16:02)
[2019-12-23] MEDS: NORMAL SALINE 100 ML with PANTOPRAZOLE SODIUM 80 MG IV PRN ×4 (02:51→14:29)
--- NOTE | 2019-12-23 11:23 | PDOC PROGRESS REPORT ---
Subjective Progress Note for:: 12/23/19 Subjective:: The patient reports that he is still having "bloody" stools. Discussed with the nurse reveals that these are more melanotic than bright red blood. He is likely still clearing blood from his GI tract. His mouth is still very dry. Reason For Visit: SEVERE ANEMIA,HEMORRHAGIC SHOCK,DIZZINESS Physical Exam Vital Signs: Temp Pulse Resp BP Pulse Ox 97.8 F 79 16 130/59 H 92 12/23/19 07:47 12/23/19 07:47 12/23/19 07:47 12/23/19 07:47 12/23/19 07:47 Intake & Output 12/22/19 12/23/19 12/24/19 06:59 06:59 06:59 Intake Total 3905.2 4787.2 Output Total 653 1000 Balance 3252.2 3787.2 Weight 83.3 kg 84.9 kg General appearance: PRESENT: no acute distress Head exam: PRESENT: atraumatic, normocephalic Eye exam: PRESENT: conjunctiva pale, EOMI. ABSENT: scleral icterus Ear exam: PRESENT: normal external ear exam. ABSENT: bleeding, drainage Mouth exam: PRESENT: dry mucosa, tongue midline Respiratory exam: PRESENT: clear to auscultation luisa, symmetrical, unlabored. ABSENT: prolonged expiratory phas, rales, rhonchi, tachypnea, wheezes Cardiovascular exam: PRESENT: RRR, +S1, +S2. ABSENT: diastolic murmur, irregular rhythm, systolic murmur GI/Abdominal exam: PRESENT: normal bowel sounds, soft. ABSENT: distended, guarding, tenderness Rectal exam: PRESENT: deferred Gentrourinary exam: ABSENT: indwelling catheter Extremities exam: ABSENT: pedal edema Musculoskeletal exam: PRESENT: ambulatory, normal inspection. ABSENT: deformity Neurological exam: PRESENT: alert, awake, oriented to person, oriented to place, oriented to time, oriented to situation, CN II-XII grossly intact. ABSENT: altered Psychiatric exam: PRESENT: flat affect. ABSENT: agitated, anxious Focused psych exam: ABSENT: delusional, paranoid, restlessness Skin exam: PRESENT: dry, normal color, warm. ABSENT: rash Results Laboratory Results: 12/22/19 23:13 12/21/19 12:46 12/20/19 12/22/19 12/22/19 15:11 18:10 23:13 WBC 7.2 7.5 RBC 2.70 L 2.56 L Hgb 7.3 L 7.1 L Hct 22.3 L 21.1 L MCV 82 82 MCH 27.0 27.5 MCHC 32.8 33.4 RDW 20.2 H 20.1 H Plt Count 131 L 231 Seg Neutrophils % Not Reportable Blood Type O POSITIVE Antibody Screen NEGATIVE 12/20/19 12/20/19 13:54 13:54 Creatine Kinase 22 L CK-MB (CK-2) < 0.22 Troponin I < 0.012 Impressions: Head CT 12/20/19 14:34 IMPRESSION: NORMAL BRAIN CT WITHOUT CONTRAST. EVIDENCE OF ACUTE STROKE: NO. Abdomen/Pelvis CT 12/20/19 15:10 IMPRESSION: 1. Inflammatory changes involving the duodenum C-loop with bowel wall thickening and surrounding inflammation. Inflammation around the pancreatic head is most likely secondary to the inflammatory changes involving the duodenum. Findings are consistent with duodenitis. 2. Calcification involving uncinate process in the inferior pancreatic head. There is dilatation of the pancreatic duct. Distal common bile duct stricture cannot be excluded. Further evaluation with MRCP or ERCP is recommended. 3. Small pleural effusions and basilar atelectasis new from prior study. Assessment and Plan - Diagnosis (1) Dizziness Is this a current diagnosis for this admission?: Yes Plan: Due to anemia and hypotension. Currently improved. 12/24/2019 Due to blood loss anemia. Resolved. (2) GI bleed Qualifiers: GI bleed type/associated pathology: duodenal ulcer Qualified Code(s): K26.4 - Chronic or unspecified duodenal ulcer with hemorrhage Is this a current diagnosis for this admission?: Yes Plan: CT scan positive for duodenitis Continue IV Protonix drip EGD yesterday positive for gastritis and duodenal ulcer 12/23/2019 Duodenal ulcer identified. No active bleeding. Gastritis identified by biopsy. Negative for Helicobacter. High risk factors are nonsteroidal anti- inflammatory medications daily, alcohol daily and smoking daily. (3) Hemorrhagic shock Is this a current diagnosis for this admission?: Yes Plan: Patient started transfusion in the ER. Currently resolved. 12/23/2019 Resolved with transfusions (4) Severe anemia Is this a current diagnosis for this admission?: Yes Plan: Received 4 units of blood so far and his hemoglobin improved to 7.6. Due to GI bleeding. 12/24/2019 Hemoglobin is now 8.5. Resume B vitamins, folic acid as well as multivitamin with iron. (5) Gastritis Qualifiers: Gastritis type: other gastritis Chronicity: chronic Gastritis bleeding: without bleeding Qualified Code(s): K29.50 - Unspecified chronic gastritis without bleeding Is this a current diagnosis for this admission?: Yes Plan: 12/23/2019 Most likely due to nonsteroidal anti-inflammatory medications but alcohol and smoking are risk factors as well. Continue proton pump inhibitor therapy and sucralfate. (6) Duodenal ulcer Is this a current diagnosis for this admission?: Yes Plan: 12/23/2019 Most likely due to nonsteroidal anti-inflammatory medications but smoking regular alcohol use can contribute as well. (7) Tobacco dependence due to cigarettes Is this a current diagnosis for this admission?: Yes Plan: 12/23/2019 Encourage tobacco cessation. No evidence of nicotine withdrawal. (8) Alcohol dependence Qualifiers: Substance use status: uncomplicated Qualified Code(s): F10.20 - Alcohol dependence, uncomplicated Is this a current diagnosis for this admission?: Yes Plan: 12/23/2019 Reported history of daily alcohol use. No evidence of withdrawal. Will encourage cessation. - Time Time Spent with patient: 15-24 minutes Medications reviewed and adjusted accordingly: Yes Anticipated discharge: Home
[2019-12-23 17:57] LABS: ABSOLUTE BASOPHILS # (AUTO) 0.1 10^3/uL (0.0-0.2); ABSOLUTE EOSINOPHILS # (AUTO) 0.1 10^3/uL (0.0-0.6); ABSOLUTE LYMPHOCYTES (AUTO) 1.1 10^3/uL (0.5-4.7); ABSOLUTE MONOCYTES (AUTO) 0.7 10^3/uL (0.1-1.4); ABSOLUTE NEUT (AUTO) 5.3 10^3/uL (1.7-8.2); BASOPHILS % (AUTO) 0.9 % (0-2); EOSINOPHILS % (AUTO) 1.9 % (0-6); HEMATOCRIT 25.5 % (37.9-51.0); HEMOGLOBIN 8.5 g/dL (13.5-17.0); MEAN CORPUSCULAR HEMOGLOBIN 27.5 pg (27.0-33.4); MEAN CORPUSCULAR HGB CONC 33.2 g/dL (32.0-36.0); MEAN CORPUSCULAR VOLUME 83 fl (80-97); MONOCYTES % (AUTO) 9.1 % (3-13); PLATELET COUNT 227 10^3/uL (150-450); RED BLOOD COUNT 3.08 10^6/uL (4.35-5.55); RED CELL DISTRIBUTION WIDTH 19.1 % (11.5-14.0); SEGMENTED NEUTROPHILS % (AUTO) 73.1 % (42-78); TOTAL CELLS COUNTED % (AUTO) 100 %; WHITE BLOOD COUNT 7.3 10^3/uL (4.0-10.5)
[2019-12-23] MEDS ORDERED: (PENDING PHARMACY ID) (Albuterol Sulfate 1 PUFF) IH PRN (19:15)
[2019-12-23] MEDS ORDERED: ALBUTEROL SULFATE HFA (90 MCG/PUFF) 200 PUFF/8.5 GM MDI IH PRN (19:38)
[2019-12-23] MEDS: SUCRALFATE 1 GM TABLET PO SCH (21:23)
[2019-12-23] MEDS: GABAPENTIN 300 MG CAPSULE PO SCH (21:23)
[2019-12-23] MEDS: DOXAZOSIN MESYLATE 4 MG TABLET PO SCH (21:23)
[2019-12-23] MEDS: THIAMINE HCL 100 MG, FOLIC ACID 1 MG in NORMAL SALINE 250 ML IV SCH (21:23)
[2019-12-23] MEDS ORDERED: TERAZOSIN HCL 4 MG PO SCH (22:00)
[2019-12-24] MEDS: RINGERS SOLUTION,LACTATED 1,000 ML IV PRN (02:01)
[2019-12-24] MEDS: PANTOPRAZOLE SODIUM 40 MG TABLET.DR PO SCH ×2 (05:15→16:42)
[2019-12-24 06:43] LABS: MEAN CORPUSCULAR HEMOGLOBIN 27.2 pg (27.0-33.4); MEAN CORPUSCULAR HGB CONC 33.3 g/dL (32.0-36.0); MEAN CORPUSCULAR VOLUME 82 fl (80-97); PLATELET COUNT 197 10^3/uL (150-450); RED BLOOD COUNT 2.69 10^6/uL (4.35-5.55); RED CELL DISTRIBUTION WIDTH 19.6 % (11.5-14.0); WHITE BLOOD COUNT 5.5 10^3/uL (4.0-10.5)
[2019-12-24 06:46] LABS: HEMOGLOBIN 7.3 g/dL (13.5-17.0)
[2019-12-24] MEDS: SUCRALFATE 1 GM TABLET PO SCH ×4 (09:34→21:08)
[2019-12-24] MEDS: GABAPENTIN 300 MG CAPSULE PO SCH ×2 (09:39→21:09)
[2019-12-24] MEDS: AMLODIPINE BESYLATE 10 MG TABLET PO SCH (09:39)
[2019-12-24] MEDS: MULTIVITAMINS W-IRON TABLET, CHEWABLE PO SCH (09:39)
[2019-12-24] MEDS: VITAMIN B COMPLEX TABLET PO SCH (09:39)
[2019-12-24] MEDS: CALCIUM CARBONATE 600 MG/VITAMIN D3 400 UNIT TABLET PO SCH (09:39)
[2019-12-24] MEDS ORDERED: FOLIC ACID PO SCH (10:00)
[2019-12-24] MEDS ORDERED: VIT B COMPLEX AND C PO SCH (10:00)
[2019-12-24] MEDS ORDERED: (PENDING PHARMACY ID) (Calcium Carbonate/Vitamin D3 [Calcium 600-Vit D3 200 Tablet] 1 EACH PO SCH (10:00)
--- NOTE | 2019-12-24 12:27 | PDOC PROGRESS REPORT ---
Subjective Progress Note for:: 12/24/19 Subjective:: Patient is feeling fine but is still having melanotic stool. He is not having any abdominal pain and he has not had any NSAIDs or aspirin therapy. Reason For Visit: SEVERE ANEMIA,HEMORRHAGIC SHOCK,DIZZINESS Physical Exam Vital Signs: Temp Pulse Resp BP Pulse Ox 97.8 F 74 18 116/58 L 95 12/24/19 11:09 12/24/19 11:09 12/24/19 11:09 12/24/19 11:09 12/24/19 11:09 Intake & Output 12/23/19 12/24/19 12/25/19 06:59 06:59 06:59 Intake Total 4787.2 4343.2 0 Output Total 1000 1050 Balance 3787.2 3293.2 0 Weight 84.9 kg 86.6 kg General appearance: PRESENT: no acute distress, cooperative, well-developed Head exam: PRESENT: atraumatic, normocephalic Eye exam: PRESENT: conjunctiva pale, EOMI. ABSENT: scleral icterus Ear exam: PRESENT: normal external ear exam. ABSENT: bleeding, drainage Respiratory exam: PRESENT: clear to auscultation luisa, symmetrical, unlabored. ABSENT: prolonged expiratory phas, rales, rhonchi, tachypnea, wheezes Cardiovascular exam: PRESENT: RRR, +S1, +S2. ABSENT: diastolic murmur, irregular rhythm, systolic murmur GI/Abdominal exam: PRESENT: normal bowel sounds, soft. ABSENT: distended, guarding, tenderness Rectal exam: PRESENT: black stool, other - Examination of his last bowel movement reveals maroon to black stool. Sitting in the toilet water you can still see evidence of blood. Gentrourinary exam: ABSENT: indwelling catheter Extremities exam: ABSENT: joint swelling, pedal edema Musculoskeletal exam: PRESENT: ambulatory, full ROM, normal inspection. ABSENT: deformity Neurological exam: PRESENT: alert, awake, oriented to person, oriented to place, oriented to time, oriented to situation, CN II-XII grossly intact. ABSENT: altered, motor sensory deficit Psychiatric exam: PRESENT: appropriate affect, normal mood, other - Frustrated with the ongoing GI bleeding. ABSENT: agitated, anxious Focused psych exam: ABSENT: delusional, paranoid, restlessness Skin exam: PRESENT: dry, intact, warm. ABSENT: mottled, rash Results Laboratory Results: 12/24/19 06:28 12/21/19 12:46 12/20/19 12/23/19 12/24/19 15:11 17:45 06:28 WBC 7.3 5.5 RBC 3.08 L 2.69 L Hgb 8.5 L 7.3 L Hct 25.5 L 22.0 L MCV 83 82 MCH 27.5 27.2 MCHC 33.2 33.3 RDW 19.1 H 19.6 H Plt Count 227 197 Seg Neutrophils % 73.1 Blood Type O POSITIVE Antibody Screen NEGATIVE 12/24/19 08:53 WBC RBC Hgb Hct MCV MCH MCHC RDW Plt Count Seg Neutrophils % Blood Type O POSITIVE Antibody Screen NEGATIVE 12/20/19 12/20/19 13:54 13:54 Creatine Kinase 22 L CK-MB (CK-2) < 0.22 Troponin I < 0.012 Impressions: Head CT 12/20/19 14:34 IMPRESSION: NORMAL BRAIN CT WITHOUT CONTRAST. EVIDENCE OF ACUTE STROKE: NO. Abdomen/Pelvis CT 12/20/19 15:10 IMPRESSION: 1. Inflammatory changes involving the duodenum C-loop with bowel wall thickening and surrounding inflammation. Inflammation around the pancreatic head is most likely secondary to the inflammatory changes involving the duodenum. Findings are consistent with duodenitis. 2. Calcification involving uncinate process in the inferior pancreatic head. There is dilatation of the pancreatic duct. Distal common bile duct stricture cannot be excluded. Further evaluation with MRCP or ERCP is recommended. 3. Small pleural effusions and basilar atelectasis new from prior study. Assessment and Plan - Diagnosis (1) GI bleed Qualifiers: GI bleed type/associated pathology: duodenal ulcer Qualified Code(s): K26.4 - Chronic or unspecified duodenal ulcer with hemorrhage Is this a current diagnosis for this admission?: Yes Plan: CT scan positive for duodenitis Continue IV Protonix drip EGD yesterday positive for gastritis and duodenal ulcer 12/23/2019 Duodenal ulcer identified. No active bleeding. Gastritis identified by biopsy. Negative for Helicobacter. High risk factors are nonsteroidal anti- inflammatory medications daily, alcohol daily and smoking daily. 12/24/2019 We discussed the etiology of this ongoing bleeding. Is very frustrating for the patient. Based on the endoscopy report and is most likely the gastritis. He did use NSAIDs and aspirin therapy continuously. I explained the use of Carafate along with Protonix. I told him that if his hemoglobin is stable tomorrow then I will send him home but he will need to follow-up for blood work early next week and follow-up with gastroenterology as he may need repeat endoscopy. (2) Severe anemia Is this a current diagnosis for this admission?: Yes Plan: Received 4 units of blood so far and his hemoglobin improved to 7.6. Due to GI bleeding. 12/24/2019 Hemoglobin is now 8.5. Resume B vitamins, folic acid as well as multivitamin with iron. 12/24/2019 He did require another unit of packed red blood cells today since his hemoglobin dropped to 7.3. Continue supplements and recheck hemoglobin tomorrow (3) Gastritis Qualifiers: Gastritis type: other gastritis Chronicity: chronic Gastritis bleeding: without bleeding Qualified Code(s): K29.50 - Unspecified chronic gastritis without bleeding Is this a current diagnosis for this admission?: Yes Plan: 12/23/2019 Most likely due to nonsteroidal anti-inflammatory medications but alcohol and smoking are risk factors as well. Continue proton pump inhibitor therapy and sucralfate. 12/24/2019 This is most likely the source of bleeding. Carafate has been added and he will continue Protonix 40 mg twice a day (4) Duodenal ulcer Is this a current diagnosis for this admission?: Yes Plan: 12/23/2019 Most likely due to nonsteroidal anti-inflammatory medications but smoking regular alcohol use can contribute as well. 12/24/2019 Medication regimen as above (5) Tobacco dependence due to cigarettes Is this a current diagnosis for this admission?: Yes Plan: 12/23/2019 Encourage tobacco cessation. No evidence of nicotine withdrawal. (6) Alcohol dependence Qualifiers: Substance use status: uncomplicated Qualified Code(s): F10.20 - Alcohol dependence, uncomplicated Is this a current diagnosis for this admission?: Yes Plan: 12/23/2019 Reported history of daily alcohol use. No evidence of withdrawal. Will encourage cessation. (7) Dizziness Is this a current diagnosis for this admission?: Yes Plan: Due to anemia and hypotension. Currently improved. 12/24/2019 Due to blood loss anemia. Resolved. (8) Hemorrhagic shock Is this a current diagnosis for this admission?: Yes Plan: Patient started transfusion in the ER. Currently resolved. 12/23/2019 Resolved with transfusions - Time Time Spent with patient: 15-24 minutes Medications reviewed and adjusted accordingly: Yes Anticipated discharge: Home Within: within 48 hours
[2019-12-24] MEDS ORDERED: FUROSEMIDE INJ/PF 20 MG/2 ML SDV IV ONE (13:00)
[2019-12-24 16:13] LABS: ABSOLUTE EOSINOPHILS # (AUTO) 0.1 10^3/uL (0.0-0.6); ABSOLUTE LYMPHOCYTES (AUTO) 0.8 10^3/uL (0.5-4.7); ABSOLUTE MONOCYTES (AUTO) 0.8 10^3/uL (0.1-1.4); ABSOLUTE NEUT (AUTO) 4.3 10^3/uL (1.7-8.2); BASOPHILS % (AUTO) 0.6 % (0-2); EOSINOPHILS % (AUTO) 2.3 % (0-6); HEMATOCRIT 27.4 % (37.9-51.0); HEMOGLOBIN 9.1 g/dL (13.5-17.0); LYMPHOCYTES % (AUTO) 13.5 % (13-45); MEAN CORPUSCULAR HEMOGLOBIN 27.2 pg (27.0-33.4); MEAN CORPUSCULAR HGB CONC 33.3 g/dL (32.0-36.0); MEAN CORPUSCULAR VOLUME 82 fl (80-97); MONOCYTES % (AUTO) 12.5 % (3-13); PLATELET COUNT 223 10^3/uL (150-450); RED BLOOD COUNT 3.36 10^6/uL (4.35-5.55); RED CELL DISTRIBUTION WIDTH 19.3 % (11.5-14.0); SEGMENTED NEUTROPHILS % (AUTO) 71.1 % (42-78); TOTAL CELLS COUNTED % (AUTO) 100 %; WHITE BLOOD COUNT 6.1 10^3/uL (4.0-10.5)
[2019-12-24] MEDS: DOXAZOSIN MESYLATE 4 MG TABLET PO SCH (21:09)
[2019-12-24] MEDS: THIAMINE HCL 100 MG, FOLIC ACID 1 MG in NORMAL SALINE 250 ML IV SCH (21:11)
[2019-12-25] MEDS: PANTOPRAZOLE SODIUM 40 MG TABLET.DR PO SCH (05:06)
[2019-12-25 05:58] LABS: HEMATOCRIT 26.3 % (37.9-51.0); HEMOGLOBIN 8.8 g/dL (13.5-17.0); MEAN CORPUSCULAR HEMOGLOBIN 27.4 pg (27.0-33.4); MEAN CORPUSCULAR HGB CONC 33.5 g/dL (32.0-36.0); MEAN CORPUSCULAR VOLUME 82 fl (80-97); PLATELET COUNT 219 10^3/uL (150-450); RED BLOOD COUNT 3.22 10^6/uL (4.35-5.55); RED CELL DISTRIBUTION WIDTH 18.7 % (11.5-14.0); WHITE BLOOD COUNT 6.2 10^3/uL (4.0-10.5)
[2019-12-25] MEDS: MULTIVITAMINS W-IRON TABLET, CHEWABLE PO SCH (09:11)
[2019-12-25] MEDS: AMLODIPINE BESYLATE 10 MG TABLET PO SCH (09:11)
[2019-12-25] MEDS: SUCRALFATE 1 GM TABLET PO SCH (09:11)
[2019-12-25] MEDS: CALCIUM CARBONATE 600 MG/VITAMIN D3 400 UNIT TABLET PO SCH (09:11)
[2019-12-25] MEDS: GABAPENTIN 300 MG CAPSULE PO SCH (09:11)
[2019-12-25] MEDS: VITAMIN B COMPLEX TABLET PO SCH (09:11)
--- NOTE | 2019-12-25 10:42 | PDOC DISCHARGE SUMMARY ---
Impression - Admit/DC Date/PCP Admission Date/Primary Care Provider: 12/20/19 17:[facility] Discharge Date: 12/25/19 - Discharge Diagnosis (1) GI bleed Is this a current diagnosis for this admission?: Yes (2) Severe anemia Is this a current diagnosis for this admission?: Yes (3) Gastritis Is this a current diagnosis for this admission?: Yes (4) Duodenal ulcer Is this a current diagnosis for this admission?: Yes (5) Tobacco dependence due to cigarettes Is this a current diagnosis for this admission?: Yes (6) Alcohol dependence Is this a current diagnosis for this admission?: Yes (7) Dizziness Is this a current diagnosis for this admission?: Yes (8) Hemorrhagic shock Is this a current diagnosis for this admission?: Yes (9) Essential (primary) hypertension Is this a current diagnosis for this admission?: Yes - Additional Information Resuscitation Status: Full Code Referrals: [facility] [Primary Care Provider] - Follow up as needed MELISSA CABELLO MD [ACTIVE STAFF] - (Follow-up for GI bleed within the next 7 to 10 days) Prescriptions: Sucralfate [Carafate 1 gm Tablet] 1 gm PO ACHS #60 tablet Ferrous Sulfate [Feosol 325 mg Tablet] 325 mg PO BID #30 tablet Pantoprazole Sodium [Protonix [address] Tablet] 40 mg PO BID@0600,1700 #30 tablet. Home Medications: Albuterol Sulfate [Proair HFA Inhalation Aerosol 8.5 gm MDI] 1 puff IH Q4HP PRN 12/20/19 Amlodipine Besylate [Norvasc 10 mg Tablet] 10 mg PO DAILY 12/20/19 Calcium Carbonate/Vitamin D3 [Calcium 600-Vit D3 200 Tablet] 1 each PO DAILY 12/20/19 Folic Acid/Vit B Complex and C [Super B Complex Tablet] 400 mcg PO DAILY 12/20/19 Gabapentin [Neurontin 300 mg Capsule] 300 mg PO Q12 12/20/19 Terazosin HCl 4 mg PO QHS 12/20/19 Ferrous Sulfate [Feosol 325 mg Tablet] 325 mg PO BID #30 tablet 12/25/19 Pantoprazole Sodium [Protonix [address] Tablet] 40 mg PO BID@0600,1700 #30 tablet. 12/25/19 Sucralfate [Carafate 1 gm Tablet] 1 gm PO ACHS #60 tablet 12/25/19 History of Present Illiness History of Present Illness: FUENTES KOWALSKI is a 69 year old male who has history of hypertension, arthritis and prostate cancer status post recent radiation therapy. Patient presents to the emergency room due to acute onset of generalized weakness and dizziness started about 2 weeks ago and has been progressive in nature. Patient cannot move around without feeling dizzy and he actually has been crawling on the floor because he could not stand up. When he came to the emergency room his hemoglobin was 3.3. He also admits to mild to moderate epigastric abdominal pain as well as intermittent nausea and vomiting. patient also complains of melena. Patient takes aspirin, diclofenac. He is everyday smoker and drinker. Hospital Course Hospital Course: The patient had a frustrating hospital course as his bleeding, most likely from the gastritis, continue to require additional units of packed red blood cells. He was stable and the initial lightheadedness and dizziness from hemorrhagic shock resolved. Is hemoglobin remained stable from last night into this morning and he will discharged home with follow-ups [facility] and Dr. Cabello. Physical Exam Vital Signs: Temp Pulse Resp BP Pulse Ox 98.3 F 70 16 129/62 H 98 12/25/19 08:57 12/25/19 08:57 12/25/19 08:57 12/25/19 08:57 12/25/19 08:57 Intake & Output 12/24/19 12/25/19 12/26/19 06:59 06:59 06:59 Intake Total 4343.2 3798 Output Total 1050 3475 Balance 3293.2 323 Weight 86.6 kg 86 kg General appearance: PRESENT: no acute distress, cooperative, well-developed, well-nourished Head exam: PRESENT: atraumatic, normocephalic Eye exam: PRESENT: conjunctiva pale. ABSENT: scleral icterus Ear exam: PRESENT: normal external ear exam. ABSENT: bleeding, drainage Mouth exam: PRESENT: moist, neck supple, tongue midline Teeth exam: PRESENT: poor dentation Respiratory exam: PRESENT: clear to auscultation luisa, symmetrical, unlabored. ABSENT: prolonged expiratory phas, rales, rhonchi, tachypnea, wheezes Cardiovascular exam: PRESENT: RRR, +S1, +S2. ABSENT: diastolic murmur, irregular rhythm, systolic murmur GI/Abdominal exam: PRESENT: normal bowel sounds, soft. ABSENT: distended, guarding, mass, tenderness Rectal exam: PRESENT: deferred Gentrourinary exam: ABSENT: indwelling catheter Extremities exam: ABSENT: pedal edema Musculoskeletal exam: PRESENT: ambulatory, full ROM, normal inspection. ABSENT: deformity Neurological exam: PRESENT: alert, awake, oriented to person, oriented to place, oriented to time, oriented to situation, CN II-XII grossly intact. ABSENT: altered, motor sensory deficit Psychiatric exam: PRESENT: appropriate affect, normal mood. ABSENT: agitated, anxious Focused psych exam: ABSENT: delusional, paranoid, restlessness Skin exam: PRESENT: dry, normal color, warm. ABSENT: rash Results Laboratory Results: WBC 6.2 10^3/uL (4.0-10.5) 12/25/19 05:05 RBC 3.22 10^6/uL (4.35-5.55) L 12/25/19 05:05 Hgb 8.8 g/dL (13.5-17.0) L 12/25/19 05:05 Hct 26.3 % (37.9-51.0) L 12/25/19 05:05 MCV 82 fl (80-97) 12/25/19 05:05 MCH 27.4 pg (27.0-33.4) 12/25/19 05:05 MCHC 33.5 g/dL (32.0-36.0) 12/25/19 05:05 RDW 18.7 % (11.5-14.0) H 12/25/19 05:05 Plt Count 219 10^3/uL (150-450) 12/25/19 05:05 Lymph % (Auto) 13.5 % (13-45) 12/24/19 16:05 Rowan % (Auto) 12.5 % (3-13) 12/24/19 16:05 Eos % (Auto) 2.3 % (0-6) 12/24/19 16:05 Baso % (Auto) 0.6 % (0-2) 12/24/19 16:05 Absolute Neuts (auto) 4.3 10^3/uL (1.7-8.2) 12/24/19 16:05 Absolute Lymphs (auto) 0.8 10^3/uL (0.5-4.7) 12/24/19 16:05 Absolute Monos (auto) 0.8 10^3/uL (0.1-1.4) 12/24/19 16:05 Absolute Eos (auto) 0.1 10^3/uL (0.0-0.6) 12/24/19 16:05 Absolute Basos (auto) 0.0 10^3/uL (0.0-0.2) 12/24/19 16:05 Total Counted 100 12/22/19 23:13 Seg Neutrophils % 71.1 % (42-78) 12/24/19 16:05 Seg Neuts % (Manual) 80 % (42-78) H 12/22/19 23:13 Band Neutrophils % 1 % (3-5) L 12/22/19 23:13 Lymphocytes % (Manual) 9 % (13-45) L 12/22/19 23:13 Monocytes % (Manual) 10 % (3-13) 12/22/19 23:13 Eosinophils % (Manual) 0 % (0-6) 12/22/19 23:13 Basophils % (Manual) 0 % (0-2) 12/22/19 23:13 Abs Neuts (Manual) 6.1 10^3/uL (1.7-8.2) 12/22/19 23:13 Abs Lymphs (Manual) 0.7 10^3/uL (0.5-4.7) 12/22/19 23:13 Abs Monocytes (Manual) 0.8 10^3/uL (0.1-1.4) 12/22/19 23:13 Absolute Eos (Manual) 0.0 10^3/uL (0.0-0.6) 12/22/19 23:13 Abs Basophils (Manual) 0.0 10^3/uL (0.0-0.2) 12/22/19 23:13 Nucleated RBCs 5 /100 WBC (0) 12/22/19 23:13 Platelet Estimate Cancelled 12/20/19 13:54 Platelet Comment ADEQUATE 12/22/19 23:13 Polychromasia SLIGHT 12/22/19 23:13 Hypochromasia 2+ 12/20/19 14:34 Poikilocytosis SLIGHT 12/20/19 14:34 Anisocytosis 2+ 12/22/19 23:13 Microcytosis SLIGHT 12/20/19 14:34 Tear Drop Cells SLIGHT 12/20/19 14:34 Ovalocytes SLIGHT 12/20/19 14:34 Abrahan Cells SLIGHT 12/20/19 14:34 PT 17.2 SEC (11.4-15.4) H 12/20/19 13:54 INR 1.39 12/20/19 13:54 APTT 21.5 SEC (23.5-35.8) L 12/20/19 13:54 Sodium 138.5 mmol/L (137-145) 12/21/19 12:46 Potassium 3.8 mmol/L (3.6-5.0) 12/21/19 12:46 Chloride 112 mmol/L (98-107) H 12/21/19 12:46 Carbon Dioxide 21 mmol/L (22-30) L 12/21/19 12:46 Anion Gap 6 (5-19) 12/21/19 12:46 BUN 10 mg/dL (7-20) 12/21/19 12:46 Creatinine 0.86 mg/dL (0.52-1.25) 12/21/19 12:46 Est GFR ( Amer) > 60 (>60) 12/21/19 12:46 Est GFR (MDRD) Non-Af > 60 (>60) 12/21/19 12:46 Glucose 97 mg/dL (75-110) 12/21/19 12:46 POC Glucose 115 mg/dL (70-110) H 12/21/19 18:37 Calcium 7.7 mg/dL (8.4-10.2) L 12/21/19 12:46 Total Bilirubin 0.3 mg/dL (0.2-1.3) 12/20/19 13:54 Direct Bilirubin 0.0 mg/dL (0.0-0.4) 12/20/19 13:54 Neonat Total Bilirubin Not Reportable 12/20/19 13:54 Neonat Direct Bilirubin Not Reportable 12/20/19 13:54 Neonat Indirect Bili Not Reportable 12/20/19 13:54 AST 15 U/L (17-59) L 12/20/19 13:54 ALT 10 U/L (<50) 12/20/19 13:54 Alkaline Phosphatase 45 U/L (38-126) 12/20/19 13:54 Creatine Kinase 22 U/L (55-170) L 12/20/19 13:54 CK-MB (CK-2) < 0.22 ng/mL (<4.55) 12/20/19 13:54 Troponin I < 0.012 ng/mL 12/20/19 13:54 Total Protein 5.1 g/dL (6.3-8.2) L 12/20/19 13:54 Albumin 2.6 g/dL (3.5-5.0) L 12/20/19 13:54 Urine Color YELLOW 12/20/19 14:04 Urine Appearance CLEAR 12/20/19 14:04 Urine pH 6.0 (5.0-9.0) 12/20/19 14:04 Ur Specific [place] 1.014 12/20/19 14:04 Urine Protein NEGATIVE mg/dL (NEGATIVE) 12/20/19 14:04 Urine Glucose (UA) NEGATIVE mg/dL (NEGATIVE) 12/20/19 14:04 Urine Ketones NEGATIVE mg/dL (NEGATIVE) 12/20/19 14:04 Urine Blood NEGATIVE (NEGATIVE) 12/20/19 14:04 Urine Nitrite NEGATIVE (NEGATIVE) 12/20/19 14:04 Urine Bilirubin NEGATIVE (NEGATIVE) 12/20/19 14:04 Urine Urobilinogen NEGATIVE mg/dL (<2.0) 12/20/19 14:04 Ur Leukocyte Esterase NEGATIVE (NEGATIVE) 12/20/19 14:04 Urine RBC NONE SEEN /HPF 12/20/19 14:04 Urine WBC NONE SEEN /HPF 12/20/19 14:04 Hyaline Casts 1-5 /LPF 12/20/19 14:04 Urine Mucus 3+ 12/20/19 14:04 Urine Ascorbic Acid NEGATIVE (NEGATIVE) 12/20/19 14:04 COVID-19 Source Cancelled 12/20/19 17:54 COVID-19 ([place]) Cancelled 12/20/19 17:54 Hep Bs Antigen Cancelled 12/20/19 16:19 Hep Bs Ag Confirmation Cancelled 12/20/19 16:19 Hep C RIBA Interpret Cancelled 12/20/19 16:19 Hepatitis C ([place]) Cancelled 12/20/19 16:19 Hep C Verif Com 1 Cancelled 12/20/19 16:19 Hep C Verif Com 2 Cancelled 12/20/19 16:19 Hepatitis Comment Cancelled 12/20/19 16:19 HIV 1&2 Antibody Cancelled 12/20/19 16:19 SARS-CoV-2 (PCR) NEGATIVE (NEGATIVE) 12/20/19 17:54 Slides for Path Review PATHOLOGIST REVIEWED 12/20/19 14:34 Blood Type O POSITIVE 12/24/19 08:53 Blood Type Confirm Cancelled 12/20/19 17:07 Antibody Screen NEGATIVE 12/24/19 08:53 Crossmatch See Detail 12/24/19 08:53 12/20/19 13:54 CK-MB (CK-2) < 0.22 Troponin I < 0.012 Impressions: Head CT 12/20/19 14:34 IMPRESSION: NORMAL BRAIN CT WITHOUT CONTRAST. EVIDENCE OF ACUTE STROKE: NO. Abdomen/Pelvis CT 12/20/19 15:10 IMPRESSION: 1. Inflammatory changes involving the duodenum C-loop with bowel wall thickening and surrounding inflammation. Inflammation around the pancreatic head is most likely secondary to the inflammatory changes involving the duodenum. Findings are consistent with duodenitis. 2. Calcification involving uncinate process in the inferior pancreatic head. There is dilatation of the pancreatic duct. Distal common bile duct stricture cannot be excluded. Further evaluation with MRCP or ERCP is recommended. 3. Small pleural effusions and basilar atelectasis new from prior study. Plan Health Concerns: GI bleeding from NSAIDs and alcohol Plan of Treatment: As outlined above Goals: Complete resolution of gastritis and healing of duodenal ulcer Time Spent: Greater than 30 Minutes Stroke Is this a Stroke Patient?: No Acute Heart Failure - Is this a Heart Failure Patient?: No
[2019-12-25 10:59] VITALS: BP 126/62
== END 2019-12-25 11:31 | disposition home or self-care (01) | DRG 377 ==
LOC: ER 13:21 → EH 17:16 → 3S 19:50
PROVIDERS: ADMIT Family Medicine; ATTEND Hospitalist
PROC: 30233N1 Transfusion of Nonautologous Red Blood Cells into Peripheral Vein, Percutaneous Approach (ICD-10-PCS; principal; 2019-12-20)
PROC: 0DD78ZX Extraction of Stomach, Pylorus, Via Natural or Artificial Opening Endoscopic, Diagnostic (ICD-10-PCS; 2019-12-21)
PROC: 30233N1 Transfusion of Nonautologous Red Blood Cells into Peripheral Vein, Percutaneous Approach (ICD-10-PCS; 2019-12-23)
PROC: 30233N1 Transfusion of Nonautologous Red Blood Cells into Peripheral Vein, Percutaneous Approach (ICD-10-PCS; 2019-12-24)
DX: K26.4 Chronic or unspecified duodenal ulcer with hemorrhage (principal); R57.8 Other shock; D50.0 Iron deficiency anemia secondary to blood loss (chronic); K29.70 Gastritis, unspecified, without bleeding; R42 Dizziness and giddiness; I10 Essential (primary) hypertension; F17.210 Nicotine dependence, cigarettes, uncomplicated; F10.20 Alcohol dependence, uncomplicated; Z03.818 Encounter for observation for suspected exposure to other biological agents ruled out
CPT/HCPCS: 36415; 36430; 43239; 70450; 731; 74177; 80048; 80053; 81001; 82550; 82553; 82962; 84484; 85025; 85027; 85610; 85730; 86701; 86803; 86804; 86850; 86900; 86901; 86920; 87340; 87635; 88305; 88342; 93005; 93010; 96360; 99140; 99285; C9113; J1940; J2704; J3411; J3490; J7030; J7050; J7120; P9016

== ENCOUNTER 2020-02-06 06:33 | Day surgery (SDC) | payer OTHER, MEDICARE ==
[2020-02-06] MEDS ORDERED: PROPOFOL INJ 200 MG/20 ML VIAL IV ONE ×2 (07:46→08:55)
--- NOTE | 2020-02-06 08:53 | Operative Report ---
Operative Report DATE OF SURGERY: 02/06/20 Operative Report: The risk, benefits and alternatives of the procedure including the risk of bleeding, perforation requiring surgery have been explained to the patient in detail and informed consent has been obtained. The patient is placed in a left, lateral decubital position. Timeout was called. Propofol medication is administered. Rectal examination is done which did not reveal any masses, tears or fissures. An Olympus videoscope was introduced into the patient's rectum. Scope was then carefully advanced all the way to the cecum. Cecum was identified by the usual anatomical landmarks including the ileocecal valve as well as the appendiceal office. Photodocumentation is obtained. Scope was then sequentially pulled back via the various segments of the colon including the ascending colon, hepatic fracture, transverse colon, splenic flexure, descending colon finally into the rectosigmoid portions of the colon. Retroflexion maneuvers performed. The risks benefits and alternatives of the procedure explained to the patient in detail and informed consent is obtained.A GIF Olympus video scope was inserted into the patient's mouth and hypopharynx, the esophagus is identified intubated and insufflated ,the scope was then advanced through the esophagus stomach and duodenum, retroflexion maneuver is done the esophagus stomach and first and second portions of the duodenum examined PREOPERATIVE DIAGNOSIS: Follow-up duodenal ulcer. Colorectal cancer screening POSTOPERATIVE DIAGNOSIS: Healed duodenal ulcer with mild residual duodenitis. 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 Biopsies obtained. on right colon Secondary to mild colitis. Internal hemorrhoids OPERATION: Colonoscopy with biopsy. EGD with submucosal ablation SURGEON: MELISSA CABELLO ANESTHESIA: LMAC TISSUE REMOVED OR ALTERED: As noted above. COMPLICATIONS: None. ESTIMATED BLOOD LOSS: None. INTRAOPERATIVE FINDINGS: As noted above. PROCEDURE: Patient tolerated the procedure well. No immediate postprocedure complications are noted. Patient is discharged in good condition. Discharge date 02/06/2020. Discharge diet: Regular. Discharge activity: Regular. 2 to 3-week follow-up to discuss findings. Patient is instructed call the off ice or proceed to the emergency room should there be any further problems or questions. Wait on the pathology. 10-year surveillance colonoscopy.
[2020-02-06 09:31] VITALS: BP 128/78
== END 2020-02-06 09:22 | disposition home or self-care (01) ==
LOC: END 06:33
PROVIDERS: ATTEND Internal Medicine Gastroenterology
DX: Q27.33 Arteriovenous malformation of digestive system vessel (principal); K52.9 Noninfective gastroenteritis and colitis, unspecified; K26.9 Duodenal ulcer, unspecified as acute or chronic, without hemorrhage or perforation; D50.0 Iron deficiency anemia secondary to blood loss (chronic); K29.80 Duodenitis without bleeding; K64.8 Other hemorrhoids; J45.909 Unspecified asthma, uncomplicated; I10 Essential (primary) hypertension; D64.9 Anemia, unspecified; Z09 Encounter for follow-up examination after completed treatment for conditions other than malignant neoplasm; Z87.19 Personal history of other diseases of the digestive system; Z03.818 Encounter for observation for suspected exposure to other biological agents ruled out
CPT/HCPCS: 43270; 45380; 87635; 88305 ×2; J2704; C9803; 813